=== PATIENT | male | born 1980 ===

== ENCOUNTER 2017-09-24 15:42 | Emergency (ER) | payer SELFPAY ==
[~2017-09-24] VITALS: Ht 182.9 cm; Wt 73.9 kg
[~2017-09-24 15:42] MED LIST: CYCL10 PO; HYDACE5 PO; HYDCHL25 PO; OXYACE5T PO; PENVK500 PO; Percocet 5-3251 EACH PO; RXHYDACE PO; RXOXYACE PO; RXPENVK250 PO
[2017-09-24 16:33] LABS: Alanine Aminotransfer (ALT/SGP 23 U/L (12-78); Albumin, Blood 4.4 g/dL (3.4-5.0); Albumin/Globulin Ratio 1.2 (0.8-1.8); Alk Phos 89 U/L (50-136); Anion Gap 6 mmol/L (6-16); Aspartate Aminotrans (AST/SGOT 21 U/L (12-37); Bilirubin, Total 0.3 mg/dL (0.1-1.0); Blood Urea Nitrogen 12 mg/dL (8-24); Bun/Creatinine Ratio 13.5 (12.0-20.0); CO2, Blood 26 mmol/L (21-32); Calcium, Blood 9.4 mg/dL (8.5-10.1); Chloride, Blood 105 mmol/L (98-108); Creatinine, Blood 0.89 mg/dL (0.60-1.20); Globulin, Blood 3.8 g/dL (2.2-4.0); Glomerular Filtration Rate >60 (60-); Glucose, Blood 158 mg/dL (70-99); Potassium, Blood 3.9 mmol/L (3.5-5.5); Sodium, Blood 137 mmol/L (136-145); Total Protein, Blood 8.2 g/dL (6.4-8.2)
[2017-09-24 16:40] LABS: BASOPHILS ABSOLUTE AUTO 0.03 K/mm3 (0.00-0.23); BASOPHILS PERCENT AUTO 0 % (0-2); EOSINOPHILS ABSOLUTE AUTO 0.03 K/mm3 (0.00-0.68); EOSINOPHILS PERCENT AUTO 0 % (0-6); Hematocrit 44.7 % (37.0-53.0); Hemoglobin 15.3 g/dL (13.5-17.5); IMMATURE GRAN ABSOLUTE AUTO 0.02 K/mm3 (0.00-0.10); IMMATURE GRAN PERCENT AUTO 0 % (0-1); LYMPHOCYTES ABSOLUTE AUTO 2.09 K/mm3 (0.84-5.20); LYMPHOCYTES PERCENT AUTO 26 % (21-46); MONOCYTES ABSOLUTE AUTO 0.61 K/mm3 (0.16-1.47); MONOCYTES PERCENT AUTO 8 % (4-13); Mean Corpuscular HGB 30.8 pg (26.0-34.0); Mean Corpuscular HGB Conc 34.2 g/dL (31.5-36.5); Mean Corpuscular Volume 90 fL (80-100); NEUTROPHILS PERCENT AUTO 65 % (41-73); Platelet Count 368 K/mm3 (150-400); RDW Coefficient Variation 12.7 % (11.7-14.2); RDW Standard Deviation 41.8 fL (35.1-46.3); Red Blood Cell Count 4.96 M/mm3 (4.30-5.90); White Blood Cell Count 7.98 K/mm3 (4.00-11.30)
[2017-09-24 18:01] LABS: Source, Urine Clean Catch
[2017-09-24 18:06] LABS: Bilirubin, Urine Neg (Neg); Blood, Urine Neg (Neg); Glucose Qualitative, Urine Neg (Neg); Ketones, Urine Neg (Neg); Leukocyte Esterase, Urine Neg (Neg); Nitrite, Urine Neg (Neg); Protein, Urine Neg (Neg); Urobilinogen, Urine NORM (Normal)
[2017-09-24 18:12] LABS: Free Thyroxine 0.95 ng/dL (0.70-1.60)
[2017-09-24 18:15] LABS: Triiodothyronine, Free 2.44 pg/mL (2.18-3.98)
[2017-09-24 18:16] LABS: Thyroid Stimulating Hormone 0.772 uIU/mL (0.360-4.800)
[2017-09-24 19:02] LABS: Appearance, Urine Clear (Clear); Color, Urine Yellow (P-Yellow)
[2017-09-24] MEDS ORDERED: IBUP600 PO (20:23)
== END 2017-09-24 20:38 | disposition home or self-care (01) ==
LOC: ER 15:42
PROVIDERS: Emergency Medicine
DX: R10.9 Unspecified abdominal pain (principal); F17.200 Nicotine dependence, unspecified, uncomplicated
CPT/HCPCS: 36415; 71046; 74176; 80053; 81003; 83690; 84439; 84443; 84481; 85025; 96361; 96374; 99284; J1885; J7030

== ENCOUNTER 2019-01-09 12:54 | Day surgery (SDC) | payer BC ==
[~2019-01-09] VITALS: Ht 180.3 cm; Wt 82.4 kg
[~2019-01-09 12:54] MED LIST changes: +IBUP600 PO
--- NOTE | 2019-01-09 13:25 | NUR ---
01/09/19 1325 Sheron Burger V PT RESTING IN BED, SIDE RAILS IN PLACE, CALL LIGHT WITHIN REACH, VSS. PT TEACHING COMPLETED, PT DENIES PAIN, DISCOMFORT AND QUESTIONS AT THIS TIME.
--- NOTE | 2019-01-09 15:22 | NUR ---
01/09/19 1522 Ngozi Oneill PT TOLERATING PO FLUIDS AND COOKIES. PT RATES RLQ PAIN 11/30. MEDICATED PER ORDERS. LABETALOL GIVEN PER ORERS FOR DIASTOLIC >90. ALIE AT BEDSIDE. PT CONVERSATIN WITH ALIE. REPORT GIVEN TO ZULEIMA
== END 2019-01-09 16:04 | disposition home or self-care (01) ==
LOC: ORSCSDS 12:54
PROVIDERS: Surgery
PROC: 0YU50JZ Supplement Right Inguinal Region with Synthetic Substitute, Open Approach (ICD-10-PCS; principal; 2019-01-09 14:45)
DX: K40.90 Unilateral inguinal hernia, without obstruction or gangrene, not specified as recurrent (principal); F17.210 Nicotine dependence, cigarettes, uncomplicated
CPT/HCPCS: C1781; J0690; J1100; J1885; J2250; J2405; J2704; J3010; J7120